=== PATIENT | female | born 1975 | race Caucasian/White ===

== ENCOUNTER 2019-10-05 04:58 | Day surgery (SDC) | payer OTHER ==
[2019-10-02 15:20] VITALS: BMI 24.3
[~2019-10-05 04:58] MED LIST: ceFAZolin SODIUM 1 GM VIAL IVPB ONE
[2019-10-05] MEDS ORDERED: MIDAZOLAM HCL 2 MG/2 ML SINGLE DOSE VIAL ONE (07:24)
[2019-10-05] MEDS ORDERED: PROPOFOL 20 ML ONE (07:24)
--- NOTE | 2019-10-05 08:08 | HP ---
History & Physical Update - History History: No Change - Physical Physical: No Change - Assessment Assessment: No Change - Plan Plan: No Change (Hysteroscopy, polypectomy, D&C.)
[2019-10-05] MEDS ORDERED: ceFAZolin SODIUM 1 GM VIAL ONE (08:18)
[2019-10-05] MEDS ORDERED: ceFAZolin SODIUM 1 GM VIAL IVPB ONE (08:18)
[2019-10-05] MEDS ORDERED: KETOROLAC TROMETHAMINE 30 MG/1 ML VIAL ONE (08:22)
[2019-10-05] MEDS ORDERED: DEXAMETHASONE SOD PHOSPHATE 4 MG/1 ML VIAL ONE ×2 (08:22→09:39)
--- NOTE | 2019-10-05 08:46 | OP ---
Operative Note - Note: Operative Date: 10/05/19 Pre-Operative Diagnosis: Endometrial polyp Operation: Hysteroscopy, polypectomy, D&C Findings: Normal endometrial cavity, uterine polyp Post-Operative Diagnosis: Same as Pre-op Surgeon: Maximilian Ball Anesthesiologist/MANAGER INTRANET: Cuco Rodriguez Anesthesia: General Specimens Removed: Endometrial polyp, endometrial curettings. Estimated Blood Loss (mls): 5 Blood Volume Replaced (mls): 0 Fluid Volume Replaced (mls): 600 Operative Report Dictated: Yes
[2019-10-05] MEDS ORDERED: ONDANSETRON 4 MG/2 ML VIAL ONE (09:15)
[2019-10-05] MEDS ORDERED: PROMETHAZINE HCL 25 MG/1 ML VIAL ONE (09:54)
--- NOTE | 2019-10-05 10:31 | OP ---
DATE OF OPERATION: 10/05/2019 PREOPERATIVE DIAGNOSIS: Endometrial polyp. POSTOPERATIVE DIAGNOSIS: Endometrial polyp. OPERATION: Hysteroscopy, polypectomy, dilation and curettage. SURGEON: Maximilian Ball MD ANESTHESIOLOGIST: Cuco Rodriguez MD ANESTHESIA: General. COMPLICATIONS: None. ESTIMATED BLOOD LOSS: 5 mL INTRAVENOUS FLUIDS: 600 mL PATHOLOGY: Endometrial polyp, endometrial curettings. FINDINGS: Examination under anesthesia revealed a small anteverted uterus with no pelvic or adnexal masses. Hysteroscopy revealed a normal uterine cavity with a posterior endometrial polyp. PROCEDURE DESCRIPTION: Patient was met preoperatively. The risks, benefits, alternatives of surgery were discussed in detail. All questions were answered. The consent form was reviewed and discussed. The patient verbalized her understanding and requested to proceed with the surgery. The patient was brought to the OR with the IV running. She was placed on the surgical table in the supine position. The general anesthesia was achieved without difficulty. The patient was then placed in a dorsal lithotomy position using adjustable Maxwell stirrups. She was examined under anesthesia with the findings as described above. The patient was prepped and draped in the usual sterile fashion. A timeout was conducted as per standard protocol. The surgeon then proceeded with the operation. The weighted speculum was introduced inside the vagina with good visualization of the cervix. The cervix was grasped with a single-tooth tenaculum. The cervical os was dilated to accommodate a size 23 Hollingsworth dilator. A hysteroscopy was then performed with the findings as described above. A Symphion resectoscope was then used to completely resect the endometrial polyp. Once this was completed, the hysteroscope was removed. A sharp uterine curettage was performed. All of the tissue was sent to Pathology. Good hemostasis was confirmed. All of the instruments were then removed from the patient. Once again, good hemostasis was confirmed. Sponge, lap, instrument counts were correct. The patient was returned to supine position and transferred to recovery room in stable condition. Polo MOROCHO/[id number]
[2019-10-05] MEDS ORDERED: oxyCODONE HCL 5 MG TABLET PO PRN ×2 (10:52)
[2019-10-05] MEDS ORDERED: ONDANSETRON 4 MG/2 ML VIAL IVPUSH PRN (10:52)
[2019-10-05] MEDS ORDERED: PROMETHAZINE HCL 25 MG/1 ML VIAL IVPUSH PRN (10:52)
[2019-10-05] MEDS ORDERED: DEXAMETHASONE SOD PHOSPHATE 4 MG/1 ML VIAL IVPUSH ONE (10:52)
[2019-10-05] MEDS ORDERED: LACTATED RINGERS SOLUTION 1,000 ML IV SCH (11:00)
[2019-10-05 15:47] VITALS: BP 115/63; PULSE 70; TEMP 97
--- NOTE | 2019-10-06 16:21 | PATH ---
Surgical Pathology Report Patient Name: THERON WILD [facility]. Rec. #: [id number] /Age/Gender: 1975 (Age: 44) / F Account: [id number] Location: [facility] SURGICAL Taken: 10/05/2019 Received: 10/05/2019 Reported: 10/06/2019 Physicians: Maximilian Ball M.D. Specimen(s) Received A: ENDOMETRIAL POLYP B: ENDOMETRIAL CURETTINGS Clinical History Endometrial polyp/intermenstrual bleeding irregular Final Diagnosis A. ENDOMETRIAL POLYP, POLYPECTOMY: FRAGMENTS OF ENDOMETRIAL POLYP AND MIXED ENDOCERVICAL/ENDOMETRIAL POLYP. B. ENDOMETRIAL CURETTINGS: FRAGMENTS OF PROLIFERATIVE ENDOMETRIUM. Electronically Signed Daisha Portillo M.D. Gross Description A. Received in formalin labeled "endometrial polyp," is a 1.3 x 1.3 x 0.2 cm aggregate of crowder pink soft tissue fragments. The formalin is filtered and the specimen is entirely submitted in one cassette. B. Received in formalin labeled "endometrial curettings," is a 2.8 x 2.5 x 0.3 cm aggregate of crowder pink soft tissue fragments. The formalin is filtered and the specimen is entirely submitted in 2 cassettes. /10/05/2019 saudi10/05/2019
== END 2019-10-05 12:15 | disposition home or self-care (01) ==
LOC: JASU-SURG 04:58
PROVIDERS: ATTEND Obstetrics & Gynecology
PROC: 0UJD8ZZ Inspection of Uterus and Cervix, Via Natural or Artificial Opening Endoscopic (ICD-10-PCS; 2019-10-05)
PROC: 0UB97ZX Excision of Uterus, Via Natural or Artificial Opening, Diagnostic (ICD-10-PCS; principal; 2019-10-05 08:00)
PROC: 0UDB7ZX Extraction of Endometrium, Via Natural or Artificial Opening, Diagnostic (ICD-10-PCS; 2019-10-05 08:00)
DX: N84.0 Polyp of corpus uteri (principal)
CPT/HCPCS: 36415; 84703; 86850; 86900; 86901; 88305-TC; 94760